=== PATIENT | male | born 2000 | race African-American/Black ===

== ENCOUNTER 2020-12-07 10:37 | Emergency (ER) | payer OTHER, MEDICAID ==
[2020-12-07] MEDS ORDERED: ACETAMINOPHEN 325 MG TABLET PO ONE (10:51)
--- NOTE | 2020-12-07 10:54 | ER Document Report ---
ED Medical Screen (RME) - General Stated Complaint: FOOT INJURY Time Seen by Provider: 12/07/20 10:47 Mode of Arrival: Ambulatory Information source: Patient Notes: HPI; 20-year-old male presents to the emergency room with worsening right foot pain. Patient states he injured his foot 4 days ago when he got crushed between 2 pallets at work. States he was seen in the hospital in [place] where he lives and works had negative x-rays discharged home on pain medication. States employer has not provided him with a Worker's Comp. provider. States he now has a huge blister on the sole of his foot with worsening pain. Out of pain medication. Drove self to the emergency room. PE: Alert and oriented x3. Lungs: Clear to auscultation without rales, rhonchi, wheezes. Heart: Regular rate rhythm without murmurs, rubs, gallops. Right foot is ecchymotic with swelling noted. Positive right pedal pulse. Large blister noted to the sole of the foot. Tenderness to palpation over the mid aspect of the right foot. I have greeted and performed a rapid initial assessment of this patient. A comprehensive ED assessment and evaluation of the patient, analysis of test results and completion of the medical decision making process will be conducted by additional ED providers. I have specifically instructed the patient or family members with the patient to immediately return to any nursing staff should anything change in the patient's condition or with their chief complaint. TRAVEL OUTSIDE OF THE [place] IN LAST 30 DAYS: No
--- NOTE | 2020-12-07 11:37 | RADIOLOGY REPORT (SQ) ---
EXAM DESCRIPTION: FOOT RIGHT COMPLETE IMAGES COMPLETED DATE/TIME: 12/07/2020 11:00 am REASON FOR STUDY: injury COMPARISON: None. NUMBER OF VIEWS: Three views. TECHNIQUE: AP, lateral and oblique radiographic images acquired of the right foot. LIMITATIONS: None. FINDINGS: MINERALIZATION: Normal. BONES: No acute fracture or dislocation. No worrisome bone lesions. JOINTS: No effusions. SOFT TISSUES: Diffuse soft tissue swelling. No foreign body. OTHER: No other significant finding. IMPRESSION: DIFFUSE SOFT TISSUE SWELLING. NO FRACTURE. TECHNICAL DOCUMENTATION: JOB ID: [id number] [employer]- All Rights Reserved Reading location - IP/workstation name: [email or web address]
[2020-12-07] MEDS ORDERED: LIDOCAINE 1% INJ-PF (10 MG/ML) 30 ML SDV INJ ONE (11:38)
[2020-12-07] MEDS ORDERED: LIDOCAINE 4%/TETRACAINE 0.5%/EPI 0.18% 5 ML TOPICAL SOLN TOP ONE (13:20)
--- NOTE | 2020-12-07 14:05 | ER Document Report ---
Entered by MALINDA LOWERY SCRIBE 12/07/20 1059 Acting as scribe for:HAYDER THOMAS MD ED Extremity Problem, Lower - General Chief Complaint: Foot Injury Stated Complaint: FOOT INJURY Time Seen by Provider: 12/07/20 10:47 Primary Care Provider: JAIME,PRIETO [Primary Care Provider] - Follow up as needed Mode of Arrival: Ambulatory Information source: Patient Notes: This 20 year old male patient presents to the ED today for evaluation of worsening right foot pain following a crush injury that occurred x4 days while at work. Patient states that his foot was crushed between a pallet rafita and a wall. He was seen in the ED in [place] and had negative x-rays. He was prescribed Panaca and given crutches, but he states that he ran out of pain medications x2 days ago. He did not take anything for pain this morning. He notes that he developed a blood blister to the bottom of his foot x2 days ago. He also mentions a prior fracture to his left foot. TRAVEL OUTSIDE OF THE [place] IN LAST 30 DAYS: No - Related Data Allergies/Adverse Reactions: No Known Allergies Allergy (Unverified 12/07/20 10:53) Home Medications: denies Past Medical History - General Information source: Patient - Social History Smoking Status: Never Smoker Cigarette use (# per day): No Chew tobacco use (# tins/day): No Smoking Education Provided: No Frequency of alcohol use: None Drug Abuse: None Family History: Reviewed & Not Pertinent Patient has homicidal ideation: No Renal/ Medical History: Reports: Hx Kidney Stones Traumatic Medical History: Reports: Hx Fractures - Left foot, right pinky Past Surgical History: Reports: None Review of Systems - Review of Systems Constitutional: No symptoms reported EENT: No symptoms reported Cardiovascular: No symptoms reported Respiratory: No symptoms reported Gastrointestinal: No symptoms reported Genitourinary: No symptoms reported Male Genitourinary: No symptoms reported Musculoskeletal: See HPI Skin: See HPI Hematologic/Lymphatic: No symptoms reported Neurological/Psychological: No symptoms reported -: Yes All other systems reviewed and negative Physical Exam - Vital signs Interpretation: Normal - General General appearance: Alert In distress: None - HEENT Head: Normocephalic, Atraumatic Eyes: Normal Pupils: PERRL Neck: Normal, Supple - Respiratory Respiratory status: No respiratory distress Chest status: Nontender Breath sounds: Normal Chest palpation: Normal - Cardiovascular Rhythm: Regular Heart sounds: Normal auscultation Murmur: No - Abdominal Inspection: Normal Distension: No distension Bowel sounds: Normal Tenderness: Nontender - Abdomen soft Organomegaly: No organomegaly - Back Back: Normal, Nontender - Extremities General upper extremity: Normal inspection Foot: Other - Diffuse soft tissue swelling and ecchymosis noted to right foot. There is a 14 x 4 cm blood blister on the sole of the right foot. - Neurological Neuro grossly intact: Yes Orientation: AAOx4 Nereida Coma Scale Eye Opening: Spontaneous [place] Coma Scale Verbal: Oriented [place] Coma Scale Motor: Obeys Commands Nereida Coma Scale Total: 15 - Psychological Associated symptoms: Normal affect, Normal mood - Skin Skin Temperature: Warm Skin Moisture: Dry Skin Color: Normal Course - Re-evaluation Re-evalutation: 12/07/20 13:38 Patient status post drainage of his blood blister and debridement of the blister From the right foot. 12/07/20 14:01 Reevaluation of patient once dressed with bandage and Alvaro wrap and placed in a postop shoe. Patient has good capillary refill neuromotor intact. - Vital Signs Vital signs: Vital signs stable - Laboratory Results Critical Laboratory Results Reviewed: No Critical Results - Radiology Results Radiology Results Interpreted: 12/07/20 12:15 Foot X-Ray 12/07/20 10:51 IMPRESSION: DIFFUSE SOFT TISSUE SWELLING. NO FRACTURE. Critical Radiology Results Reviewed: No Critical Results Procedures - Incision and Drainage Right Volar Foot Time completed: 13:00 - Right foot on the sole of the foot with a large blood blister in the center of the foot and the ball of the foot measuring 14 cm x 4 cm wide Type: Simple Anesthetic type: 1% Lidocaine Blade size: 11, Other - Scissors I&D procedure: Shurclens applied, Sterile dressing applied Incision Method: Incision made by scalpel Notes: 12/07/20 13:24 Raise swollen blood blister on the sole of the foot lesion forceps scalpel and scissors was able to de-In removing the epidermal layer skin leave it open the wound site at the draining 5 mL of serosanguineous fluid and clots of blood. Clean wound with sterile gauze afterwards. Patient tolerated the procedure without complication 12/07/20 13:25 Ordered lidocaine tetracaine and epi supplied is to the open wound site prior to dressing the wound with nonadherent gauze and Alvaro wrap and then a postop shoe. Discharge - Discharge Clinical Impression: Contusion of right foot, Localized soft tissue swelling, Blood blister Condition: Stable Disposition: HOME, SELF-CARE Additional Instructions: [facility] [address] [place] [id number] Wound Care After I&D 1. If an antibiotic is prescribed please try to take on a regular schedule as this may help resolve your infection faster. 2. Pain will usually be very well managed with [id number] medications such as Tylenol, Advil, or Aleve. If a narcotic prescription is used you cannot take this and drive or operate dangerous machinery while on this medication. 3. If bleeding occurs postoperatively apply firm pressure over the site for 10 minutes and it will usually stop. If it persists call the office and return during office hours or go to the emergency room in the evenings or w eekends. 4. You may shower the next day. It is usually best to remove the outer dressing before the shower. Then gently pull out the gauze packing inside the abscess cavity. Do not moisten prior to removal. Wash any soap out of the wound daily. 5. After your shower and the packing has been removed you should gently clean the abscess cavity with 2-3 Q-tips and a solution of saline and peroxide that was sent home with you. If you did not receive this solution, you can mix peroxide and water as the peroxide will clean even tap water of any bacteria. Insert the Q-tip into the solution and then gently into the abscess cavity to keep the skin edges apart, gently swabbing using a total of 2-3 Q-tips. This helps to keep the skin open to allow the abscess to heal from the inside out. If the skin heals too fast the abscess will reoccur as the skin closes over an open hole. Repack with damp gauze with saline and peroxide. No wet part should touch the skin edge. Cover the site with a gauze dressing and tape at first after daily wound care. When the drainage is less you may switch over to band aids if more convenient. 6. When only the skin edges are left to heal you may clean the surface with the solution on a cotton ball. 7. Schedule a follow up to monitor healing. In some cases an excision of the area may be needed in the future to decrease risk of recurrence. 8. If any problems or questions call during office hours [phone]. If at night or on the weekend you may call [facility] [phone] and ask for the surgicalist infection control coordinator. Contusion Your injury has resulted in a contusion -- a crushing of the deep tissues. No injury to important structures was detected during the physician's exam. Contusions vary in the amount of pain they cause, and in the length of time required for healing. Typically, the area will become bruised, and will remain painful to touch for two or three weeks. However, most patients are back to working and playing within a few days. After the initial period of rest and cold-packs, your symptoms (together with the doctor's recommendations) will determine how rapidly you can get back to full activity. Usually this means "do what feels okay, but don't do things that hurt." If re-examination was recommended, it's important to follow up as instructe d. Call the doctor or return any time if pain increases, if swelling becomes severe, if you develop numbness or weakness in an injured extremity, or if any other alarming symptoms occur. Prescriptions: Ibuprofen [Ibu] 600 mg PO TID PRN #21 tablet PRN Reason: Pain Scale Of 3 Cephalexin Monohydrate [Keflex 500 mg Capsule] 500 mg PO BID 7 Days #14 capsule Hydrocodone/Acetaminophen [Panaca 5-325 mg Tablet] 1 tab PO QID PRN #16 tablet PRN Reason: severe pain Forms: Return to Work Referrals: [facility] [Primary Care Provider] - Follow up as needed I personally performed the services described in the documentation, reviewed and edited the documentation which was dictated to the scribe in my presence, and it accurately records my words and actions.
--- OUTSIDE RECORDS SUMMARY | 2020-12-09 10:42 | XMS REPORT ---
:2000 Author Organization [facility] Address [facility] [address] [place] [address] Care Team Providers Name Role Phone PATIENT, NO PCP PER Primary Care Physician Unavailable SEVEN Attending Clinician Unavailable Calvin PURVIS Attending Clinician Unavailable Allergies, Adverse Reactions, Alerts This patient has no known allergies or adverse reactions. Medications This patient has no known medications. Problems This patient has no known problems. Procedures This patient has no known procedures. Results This patient has no known results. Encounters Start End Encounter Admission Attending Care Care Encounter ID Date/Time Date/Time Type Type Clinicians Facility Department 2020-12-03 2020-12-03 EMS [facility] [id number] 01:00:00 02:13:00 FRANCINE 2018-03-26 2018-03-26 Outpatient LINDA PURVIS [id number] 12:11:53 14:01:25 [employer] Payers Payer Name Policy Type Policy Number Effective Date Expiration D [facility] ACCESS Social History This patient has no known social history. Vital Signs This patient has no known vital signs.
== END 2020-12-07 15:20 | disposition home or self-care (01) ==
LOC: ER 10:37
DX: S90.31XA Contusion of right foot, initial encounter (principal); M79.671 Pain in right foot; M79.89 Other specified soft tissue disorders; S90.821A Blister (nonthermal), right foot, initial encounter; W23.0XXA Caught, crushed, jammed, or pinched between moving objects, initial encounter
CPT/HCPCS: 99284; 73630; 10140; J3490 ×2